=== PATIENT | female | born 2000 | race Caucasian/White ===

== ENCOUNTER → 2021-12-09 11:22 | Outpatient (BNVA) | payer MEDICAID, SELFPAY | PROVIDERS: Family Provider Family Medicine; Visit Provider Registered Nurse | DX: K52.9 Noninfective gastroenteritis and colitis, unspecified (principal); E04.1 Nontoxic single thyroid nodule | CPT/HCPCS: 80053; 84443; 85025; 85651; 86140 ==

== ENCOUNTER 2022-01-04 08:59 | Outpatient (CLI) | payer MEDICAID, SELFPAY ==
--- NOTE | 2022-01-04 09:30 | US_ITS ---
WS: [id number] ULTRASOUND THYROID TECHNIQUE: Ultrasound of the thyroid. CLINICAL INFORMATION: E04.1 - Nontoxic single thyroid nodule COMPARISON: None. FINDINGS: Thyroid: Right and left thyroid lobes are normal in size and echotexture. No thyroid nodules are pres ent. Right thyroid lobe: 4.4 cm x 1.1 cm x 1.5 cm Left thyroid lobe: 4.4 cm x 1.5 cm x 1.1 cm. Isthmus: 0.3 mm. Cervical lymphadenopathy: None. US/US thyroid 76288 IMPRESSION: Normal thyroid ultrasound examination.
== END 2022-01-04 09:00 | disposition home or self-care (01) ==
LOC: RAD 09:00
PROVIDERS: PCP Registered Nurse; Visit Provider Registered Nurse
DX: E04.1 Nontoxic single thyroid nodule (principal)
CPT/HCPCS: 76536

== ENCOUNTER → 2022-02-03 08:57 | Outpatient (BNVA) | payer MEDICAID, SELFPAY | PROVIDERS: PCP Registered Nurse; Visit Provider Registered Nurse | DX: N89.8 Other specified noninflammatory disorders of vagina (principal) | CPT/HCPCS: 81000; 87086; 87491; 87591; 87661 ==

== ENCOUNTER 2022-04-19 09:01 | Emergency (ER) | payer MEDICAID, SELFPAY ==
[2022-04-19] VITALS (11 sets, daily range): BP systolic 120–137; BP diastolic 66–99; PULSE 78–80; RESP 14–18; TEMP 36.5; O2SAT 98–100; BMI 20.1
--- NOTE | 2022-04-19 09:28 | W.ED.ABDPA2 ---
HPI - Abdominal Pain General: Chief Complaint: Abdominal Pain Stated Complaint: Abd pain, Fever, V/N Time Seen by Provider: 04/19/22 09:19 History of Present Illness: 21-year-old female who is 2 and half months who presents with epigastric abdominal pain. The patient's been having pain off and on for the past 2-1/2 weeks. She describes it as a full sensation. She has had associated nausea and vomiting. She describes her emesis as bubbly and clear. She denies coffee-ground emesis or bright red bloody emesis. The pain does not radiate. She is not been able to keep any oral food or fluids down for the past 3 days. She denies diarrhea. She has had decreased urinary output. She denies dysuria or hematuria. She denies vaginal bleeding. No prior history of hyperemesis with her previous pregnancies. Associated Symptoms: Reports chills, fever(s), nausea and vomiting; Denies coffee ground emesis, GI cramping, diarrhea, dysuria, hematochezia, hematemesis and melena Review of Systems Const: Reports: fever(s), chills, body aches and fatigue Eyes: Denies: change in vision ENMT: Denies: throat pain Card: Denies: chest pain Resp: Denies: dyspnea or non-productive cough GI: Reports: abdominal pain, nausea and vomiting; Denies: hematemesis, coffee ground emesis, diarrhea, GI cramping, hematochezia or melena : Reports: difficulty voiding; Denies: flank pain, dysuria, urinary frequency or urinary hesitancy Musc: Denies: back pain Skin/Breast: Denies: rash Neuro: Denies: headache(s) PFSH ED PFSH: Social History Smoking and tobacco status: current every day smoker cigarettes Smoking risk assessment/counseling performed?: Yes Alcohol intake: current Alcohol intake frequency: few times a month Physical Exam Const: COMMON NORMALS: no acute distress, patient oriented x3, alert and well nourished Eye: COMMON NORMALS: Equal, round and reactive pupils present and EOMs intact bilaterally PUPIL: Yes Equal, round and reactive pupils present Neck/C-Spine: COMMON NORMALS: supple Resp: COMMON NORMALS: normal respiratory effort, No use of accessory muscles and clear to auscultation bilaterally AUSCULTATION: clear to auscultation bilaterally Cardio: COMMON NORMALS: regular rate and regular rhythm RATE: regular rate RHYTHM: regular rhythm GI: COMMON NORMALS: Normal to inspection, nondistended, normoactive bowel sounds present and Soft to palpation PALPATION: Yes Soft to palpation OTHER: Patient has tenderness in the epigastric area. Her abdomen is soft, no rebound or guarding. She has no tenderness in the right upper quadrant. She has a negative Stark sign. Extremity: OTHER: No edema. Neuro: COMMON NORMALS: patient oriented x3 SENSORIUM/ORIENTATION: Yes alert Course ED course: Patient has been given 1 L of saline IV as well as 4 mg of Zofran for nausea and 5 mg of Compazine IV. Nausea is improved and she is not tolerating oral fluids. She was given a GI cocktail which helped her epigastric pain. I do feel that this is likely gastroenteritis with an associated gastritis. On her laboratory evaluation, she does have a urinary tract infection. White blood cell count is 12.1. Hemoglobin 17.2, hematocrit 49.5. Sodium is 135, potassium 3.9, chloride 98, CO2 is 22. Glucose is 99. LFTs are normal. Lipase is normal. On urinalysis she has 5-10 white blood cells, 3+ bacteria and positive leukocyte esterase. Urine culture has been sent. The patient's been given Rocephin 2 g IV in the ER. We will plan for discharge home on Phenergan to take every 6 hours as needed for nausea and vomiting. And when to give her Carafate to take up to 4 times daily as needed for her epigastric abdominal pain. We will place her on ampicillin 500 mg 3 times daily x7 days for her urinary tract infection. She has been instructed to push fluids. Avoid spicy foods, greasy foods, aspirin, ibuprofen, caffeine and tobacco. Return for symptoms are worsening. 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 Reevaluation(s): Reevaluation #1: Patient is feeling significantly better. Abdominal pain is resolved. Tolerating p.o. fluids. Time: 11:37 Vital Signs: Vital signs: Vital Signs Temperature 97.7 F 04/19/22 09:10 Pulse Rate 78 04/19/22 10:04 Respiratory Rate 16 04/19/22 10:04 Blood Pressure 137/99 04/19/22 10:04 Pulse Oximetry 99 04/19/22 10:04 Oxygen Delivery Me thod 04/19/22 10:04 MDM - Abdominal Pain Medical Decision Making 21-year-old female who presents with epigastric abdominal pain with associated nausea and vomiting. Suspect this is a gastritis. Other differentials include pancreatitis, peptic ulcer disease, hyperemesis. We will start an IV, give her IV fluids and Zofran for nausea. I am going to try GI cocktail initially. Differential Diagnosis Likely abdominal pain, gastroenteritis and pancreatitis Lab Data I reviewed the patient's lab results. 04/19/22 09:43 04/19/22 09:43 Labs/Radiology: Laboratory Results WBC 12.1 10^3/uL (4.0-10.0) H 04/19/22 09:43 RBC 5.64 10^6/uL (4.1-5.3) H 04/19/22 09:43 Hgb 17.2 g/dL (11.5-15.3) H 04/19/22 09:43 Hct 49.5 % (37.0-47.0) H 04/19/22 09:43 MCV 87.8 fl (81-99) 04/19/22 09:43 MCH 30.5 pg (28.0-34.0) 04/19/22 09:43 MCHC 34.7 g/dL (30.0-36.0) 04/19/22 09:43 RDW 12.8 % (12.1-15.1) 04/19/22 09:43 Plt Count 214 10^3/cmm (130-400) 04/19/22 09:43 MPV 12.0 fL (7.4-10.4) H 04/19/22 09:43 Neut % (Auto) 90.4 % 04/19/22 09:43 Lymph % (Auto) 7.4 % 04/19/22 09:43 [place] % (Auto) 1.7 % 04/19/22 09:43 Eos % (Auto) 0.0 % 04/19/22 09:43 Baso % (Auto) 0.2 % 04/19/22 09:43 Neut # (Auto) 10.89 10^3/uL (1.8-7.7) H 04/19/22 09:43 Lymph # (Auto) 0.9 10^3/uL (0.8-4.8) 04/19/22 09:43 [place] # (Auto) 0.2 10^3/uL (0.2-0.9) 04/19/22 09:43 Eos # (Auto) 0.0 10^3/uL (0.0-0.8) 04/19/22 09:43 Baso # (Auto) 0.0 10^3/uL (0.0-0.1) 04/19/22 09:43 Nucleated RBC % (auto) 0 % 04/19/22 09:43 Nucleated RBCs # 0.0 /100WBC 04/19/22 09:43 Sodium 135 mmol/L (136-145) L 04/19/22 09:43 Potassium 3.9 mmol/L (3.5-5.1) 04/19/22 09:43 Chloride 98 mmol/L (98-107) 04/19/22 09:43 Carbon Dioxide 22 mmol/L (22-29) 04/19/22 09:43 Anion Gap 18.9 (5-19) 04/19/22 09:43 BUN 12 mg/dL (6-20) 04/19/22 09:43 Creatinine 0.6 mg/dL (0.5-0.9) 04/19/22 09:43 GFR Calculation 123.9 mL/min (90-130) 04/19/22 09:43 Glucose 99 mg/dL (65-115) 04/19/22 09:43 Calculated Osmolality 280 mOsm/kg (285-295) L 04/19/22 09:43 Calcium 9.8 mg/dL (8.5-10.5) 04/19/22 09:43 Total Bilirubin 1.0 mg/dL (0.15-1.2) 04/19/22 09:43 AST 18 U/L (0-32) 04/19/22 09:43 ALT 24 U/L (0-33) 04/19/22 09:43 Alkaline Phosphatase 59 U/L (35-105) 04/19/22 09:43 Total Protein 8.3 g/dL (6.6-8.7) 04/19/22 09:43 Albumin 5.2 g/dL (3.5-5.2) 04/19/22 09:43 Globulin 3.1 g/dL (1.3-4.6) 04/19/22 09:43 Lipase 20 U/L (13-60) 04/19/22 09:43 Urine Color Dark yellow (Yellow) 04/19/22 10:31 Urine Appearance Clear (CLEAR) 04/19/22 10:31 Urine pH 6.5 (5-7) 04/19/22 10:31 Ur Specific [place] 1.025 (1.005-1.030) 04/19/22 10:31 Urine Protein Trace (Negative) 04/19/22 10:31 Urine Glucose (UA) Norm (Normal) 04/19/22 10:31 Urine Ketones 1+ (Negative) H 04/19/22 10:31 Urine Blood 2+ (Negative) H 04/19/22 10:31 Urine Nitrate Negative (Negative) 04/19/22 10:31 Urine Bilirubin Neg (Negative) 04/19/22 10:31 Urine Urobilinogen Norm mg/dL (Negative) 04/19/22 10:31 Ur Leukocyte Esterase 1+ (Negative) H 04/19/22 10:31 Urine RBC 0-4 /hpf (0-2) H 04/19/22 10:31 Urine WBC 5-10 /hpf (0-5) H 04/19/22 10:31 Ur Squamous Epith Cells 0-4 /hpf (0-5) H 04/19/22 10:31 Amorphous Sediment Not Reportable 04/19/22 10:31 Urine Bacteria 3+ /hpf (NONE) H 04/19/22 10:31 Discharge Plan Discharge Patient Disposition: Home Clinical Impression: Gastritis, Nausea & vomiting, Urinary tract infection affecting Condition: Stable Prescriptions: New promethazine 25 mg tablet 25 mg PO QID PRN (Reason: nausea and vomiting) Qty: 20 0RF Carafate 1 gram tablet 1 g PO TID Qty: 90 0RF ampicillin 500 mg capsule 500 mg PO TID Qty: 21 0RF No Action doxylamine-pyridoxine (vit B6) 10-10 mg Tablet,Delayed Release (Dr/Ec) 1 tab PO BID Discharge Orders: Discharge ED (Routine); Ordered 04/19/22 Ordered By: Pilar Sarah Referrals: Reinier Amezquita, MANAGER CONFIGURATION [Primary Care Provider] - Discharge Diet: Advance as tolerated Discharge Activity: Increase activity as tolerated Patient Instructions: Opioid Safety, Pain Management, Gastritis (ED), Urinary Tract Infection in (ED), Acute Nausea and Vomiting (DC) Activity Restrictions/Additional Instructions: Start with clear liquids. Avoid greasy foods, spicy foods, caffeine, alcohol, nicotine, aspirin, ibuprofen or anything that is irritating to your stomach lining. Eat small frequent meals. Take the Phenergan every 4-6 hours as needed for nausea and vomiting. He can take Carafate up to 4 times daily as needed for the epigastric abdominal pain. Make sure you finish your antibiotics -the ampicillin which you take 3 times daily for 7 days. You can advance your diet as tolerated. Start with bland foods. Return if you are having persistent vomiting or increasing pain. Follow-up in 1 to 2 weeks with your OB doctor. Coding Level of Care Code ED Undercover Cop for Pramodg Fwd Exam Detailed
[2022-04-19 09:50] LABS: Basophils % 0.2 %; Hematocrit 49.5 % (37.0-47.0); Hemoglobin 17.2 g/dL (11.5-15.3); Lymphocytes # 0.9 10^3/uL (0.8-4.8); Lymphocytes % 7.4 %; Mean Corpuscular HGB Conc 34.7 g/dL (30.0-36.0); Mean Corpuscular Hemoglobin 30.5 pg (28.0-34.0); Mean Corpuscular Volume 87.8 fl (81-99); Monocytes # 0.2 10^3/uL (0.2-0.9); Monocytes % 1.7 %; Neutrophils # 10.89 10^3/uL (1.8-7.7); Neutrophils % 90.4 %; Nucleated Red Blood Cells % 0 %; Platelet Count 214 10^3/cmm (130-400); Red Blood Count 5.64 10^6/uL (4.1-5.3); Red Cell Distribution Width 12.8 % (12.1-15.1); White Blood Count 12.1 10^3/uL (4.0-10.0)
[2022-04-19] MEDS: sodium chloride 0.9% 1,000 ML 999 ML IV (09:50)
[2022-04-19] MEDS: ondansetron 2 mg/ML SDV 2 mL 4 MG IVP (09:51)
[2022-04-19] MEDS: lidocaine 2% viscous 15 ML, aluminum-mag hydrox-simethicon 30 ML, sucralfate oral liq 1 GM PO (09:51)
[2022-04-19 10:22] LABS: Alanine Aminotransferase 24 U/L (0-33); Albumin Level 5.2 g/dL (3.5-5.2); Alkaline Phosphatase 59 U/L (35-105); Anion Gap 18.9 (5-19); Aspartate Amino Transferase 18 U/L (0-32); Blood Urea Nitrogen 12 mg/dL (6-20); Calcium 9.8 mg/dL (8.5-10.5); Carbon Dioxide 22 mmol/L (22-29); Chloride 98 mmol/L (98-107); Creatinine Clr Calc Pharmacy 134.1185; Globulin 3.1 g/dL (1.3-4.6); Glomerular Filtration Rate 123.9 mL/min (90-130); Glucose 99 mg/dL (65-115); Lipase 20 U/L (13-60); Osmolality Calculated 280 mOsm/kg (285-295); Potassium 3.9 mmol/L (3.5-5.1); Sodium 135 mmol/L (136-145); Total Protein 8.3 g/dL (6.6-8.7)
[2022-04-19] MEDS: prochlorperazine 10 mg/2 mL Inj 5 MG IVP (10:26)
[2022-04-19 10:42] LABS: Urine Appearance Clear (CLEAR)
[2022-04-19 10:43] LABS: Add Urine Microscopic? YES; Bilirubin Urine Neg (Negative); Blood Urine 2+ (Negative); Glucose Urine UA Norm (Normal); Ketones Urine 1+ (Negative); Leukocyte Esterase Urine 1+ (Negative); Nitrate Urine Negative (Negative); Protein Urine Trace (Negative); Specific Gravity, Urine 1.025 (1.005-1.030); Urine Color Dark Yellow (Yellow); Urobilinogen Urine Norm (Negative); pH Urine 6.5 (5-7)
[2022-04-19 10:46] LABS: Add Urine Culture? Yes; Bacteria Urine 3+ /hpf; RBC Urine 0-4 /hpf (0-2); Squamous Epithelial Cell Urine 0-4 /hpf (0-5)
[2022-04-19] MEDS: cefTRIAXone 2,000 MG in sodium chloride 0.9% (plus) 50 ML 100 MG IV (11:35)
== END 2022-04-19 12:13 | disposition home or self-care (01) ==
PROVIDERS: Emergency Provider Emergency Medicine; PCP Registered Nurse
DX: O23.41 Unspecified infection of urinary tract in pregnancy, first trimester (principal); N39.0 Urinary tract infection, site not specified; O26.891 Other specified pregnancy related conditions, first trimester; K29.70 Gastritis, unspecified, without bleeding; O99.331 Smoking (tobacco) complicating pregnancy, first trimester; F17.210 Nicotine dependence, cigarettes, uncomplicated; Z3A.10 10 weeks gestation of pregnancy
CPT/HCPCS: 80053; 81001; 83690; 85025; 87086; 96365; 96375; 99284; J0696; J0780; J2405; J7030

== ENCOUNTER 2022-04-22 09:51 | Emergency (ER) | payer MEDICAID, SELFPAY ==
[2022-04-22 09:57] VITALS: BP 149/80; PULSE 70; RESP 18; TEMP 36.9; O2SAT 100
--- NOTE | 2022-04-22 11:50 | ED_ITS ---
HPI - Nausea/Vomiting/Diarrhea General: Chief complaint: Nausea/Vomiting/Diarrhea Stated complaint: n/v Time Seen by Provider: 04/22/22 11:50 History of Present Illness: Ms. Frank is a 21-year-old lady she to currently approximately 2 and half months presenting to the emergency department due to epigastric discomfort associated with emesis. Notes symptoms started approximately 3 weeks ago. She describes a fullness and associated nausea and vomiting. Emesis is clear and foamy. She denies noting food or medications and emesis even when she has recently consumed them. Overall symptoms have persisted and are moderate in intensity. Previously seen and evaluated and treated for UTI and with promethazine without significant improvement. No other specific changes in health, exacerbating, or alleviating factors identified. Onset (ago): week(s) Description of vomiting: watery Associated nausea: Yes Associated abdominal pain: Yes Location of pain: Epigastric Severity: moderate Exacerbating factors: eating and vomiting Relieving factors: none Context: other Associated symtoms: Reports nausea Review of Systems General: Reports: 10 or more systems reviewed and unremarkable except in HPI and below GI: Reports: nausea PFSH ED PFSH: Medical History No significant past medical history Surgical History No significant past surgical history Social History Smoking and tobacco status: current every day smoker cigarettes Smoking risk assessment/counseling performed?: Yes Alcohol intake: current Alcohol intake frequency: few times a month Female Reproductive History: Date of last menstrual period: 02/09/22 Physical Exam Const: COMMON NORMALS: alert GENERAL APPEARANCE: cooperative and well developed HENMT: COMMON NORMALS: normocephalic and atraumatic HEAD & SCALP: normocephalic and atraumatic Eye: COMMON NORMALS: conjunctivae normal CONJUNCTIVA: Yes conjunctivae normal SCLERA: sclerae normal Neck/C-Spine: COMMON NORMALS: supple GENERAL: Yes trachea midline Resp: COMMON NORMALS: clear to auscultation bilaterally EFFORT & INSPECTION: Yes able to speak in complete sentences AUSCULTATION: clear to auscultation bilaterally Cardio: COMMON NORMALS: regular rate and regular rhythm RATE: regular rate RHYTHM: regular rhythm GI: COMMON NORMALS: Soft to palpation PALPATION: Yes Soft to palpation and No Tenderness to palpation present (GI) Extremity: GENERAL: Yes normal exam except as noted and No edema Neuro: COMMON NORMALS: moves all extremities SENSORIUM/ORIENTATION: Yes alert and No Orientation impaired Psych: COMMON NORMALS: mental status grossly normal and Normal thought process present THOUGHT PROCESS: Normal thought process present Course Vital Signs: Vital signs: Vital Signs Temperature 98.5 F 04/22/22 09:57 Pulse Rate 67 04/22/22 13:18 Respiratory Rate 16 04/22/22 13:18 Blood Pressure 129/85 04/22/22 13:18 Pulse Oximetry 99 04/22/22 13:18 Oxygen Delivery Me thod 04/22/22 13:18 MDM - Nausea/Vomiting/Diarrhea Medical Decision Making 21-year-old lady currently presenting to the emergency department due to persistent nausea and vomiting. Patient is nontoxic in appearance and there is no evidence of peritonitis or acute surgical abdomen on exam. Laboratory studies notable for leukocytosis which may be reactive, overall hemoconcentration is mildly improved. No significant electrolyte derangements and renal function is preserved. Urinalysis appears to be improving compared to prior likely indicating that antibiotics are being effective. The patient had significant improvement with IV fluid bolus, acetaminophen, Reglan, Maalox. She was able to tolerate p.o. intake. Most likely etiology of patient's symptoms is related nausea and vomiting with dehydration. I will prescribe different regimen for induced nausea and vomiting. Patient also understands need for follow-up with pill maker. The results of ED evaluation were discussed with the patient including prescriptions and/or symptomatic cares (if applicable) including appropriate and responsible use, followup plan, and return precautions. The patient verbalized understanding and felt safe for discharge. Medical Records I reviewed the patient's medical records. Lab Data I reviewed the patient's lab results. 04/22/22 12:22 04/22/22 12: Laboratory Results WBC 14.4 10^3/uL (4.0-10.0) H 04/22/22 12:22 RBC 5.20 10^6/uL (4.1-5.3) 04/22/22 12:22 Hgb 16.0 g/dL (11.5-15.3) H 04/22/22 12:22 Hct 46.9 % (37.0-47.0) 04/22/22 12:22 MCV 90.2 fl (81-99) 04/22/22 12:22 MCH 30.8 pg (28.0-34.0) 04/22/22 12:22 MCHC 34.1 g/dL (30.0-36.0) 04/22/22 12:22 RDW 12.5 % (12.1-15.1) 04/22/22 12:22 Plt Count 211 10^3/cmm (130-400) 04/22/22 12:22 MPV 12.2 fL (7.4-10.4) H 04/22/22 12:22 Neut % (Auto) 85.6 % 04/22/22 12:22 Lymph % (Auto) 10.5 % 04/22/22 12:22 [place] % (Auto) 3.2 % 04/22/22 12:22 Eos % (Auto) 0.1 % 04/22/22 12:22 Baso % (Auto) 0.3 % 04/22/22 12:22 Neut # (Auto) 12.34 10^3/uL (1.8-7.7) H 04/22/22 12:22 Lymph # (Auto) 1.5 10^3/uL (0.8-4.8) 04/22/22 12:22 [place] # (Auto) 0.5 10^3/uL (0.2-0.9) 04/22/22 12:22 Eos # (Auto) 0.0 10^3/uL (0.0-0.8) 04/22/22 12:22 Baso # (Auto) 0.1 10^3/uL (0.0-0.1) 04/22/22 12:22 Nucleated RBC % (auto) 0 % 04/22/22 12:22 Nucleated RBCs # 0.0 /100WBC 04/22/22 12:22 Sodium 136 mmol/L (136-145) 04/22/22 12:22 Potassium 3.7 mmol/L (3.5-5.1) 04/22/22 12:22 Chloride 101 mmol/L (98-107) 04/22/22 12:22 Carbon Dioxide 24 mmol/L (22-29) 04/22/22 12:22 Anion Gap 14.7 (5-19) 04/22/22 12:22 BUN 7 mg/dL (6-20) 04/22/22 12:22 Creatinine 0.5 mg/dL (0.5-0.9) 04/22/22 12: GFR Calculation 152.9 mL/min (90-130) H 04/22/22 12: Glucose 92 mg/dL (65-115) 04/22/22 12: Calculated Osmolality 280 mOsm/kg (285-295) L 04/22/22 12:22 Calcium 9.1 mg/dL (8.5-10.5) 04/22/22 12:22 Total Bilirubin 0.8 mg/dL (0.15-1.2) 04/22/22 12: AST 13 U/L (0-32) 04/22/22 12: ALT 19 U/L (0-33) 04/22/22 12: Alkaline Phosphatase 52 U/L (35-105) 04/22/22 12:22 Total Protein 7.7 g/dL (6.6-8.7) 04/22/22 12:22 Albumin 4.8 g/dL (3.5-5.2) 04/22/22 12: Globulin 2.9 g/dL (1.3-4.6) 04/22/22 12: Lipase 21 U/L (13-60) 04/22/22 12:22 Urine Color Yellow (Yellow) 04/22/22 12:22 Urine Appearance Cloudy (CLEAR) A 04/22/22 12: Urine pH 8 (5-7) H 04/22/22 12:22 Ur Specific [place] 1.015 (1.005-1.030) 04/22/22 12:22 Urine Protein Neg (Negative) 04/22/22 12: Urine Glucose (UA) Norm (Normal) 04/22/22 12: Urine Ketones 3+ (Negative) H 04/22/22 12: Urine Blood Neg (Negative) 04/22/22 12:22 Urine Nitrate Negative (Negative) 04/22/22 12: Urine Bilirubin Neg (Negative) 04/22/22 12:22 Prot Sulfosalicylic Acd Negative (Negative) 04/22/22 12:22 Urine Urobilinogen Norm mg/dL (Negative) 04/22/22 12:22 Ur Leukocyte Esterase Negative (Negative) 04/22/22 12:22 Urine RBC 0-4 /hpf (0-2) H 04/22/22 12:22 Urine WBC 0-4 /hpf (0-5) H 04/22/22 12:22 Ur Squamous Epith Cells 0-4 /hpf (0-5) H 04/22/22 12:22 Amorphous Sediment 4+ /hpf 04/22/22 12:22 Urine Bacteria Trace /hpf (NONE) 04/22/22 12:22 Discharge Plan Discharge Patient Disposition: Home Clinical Impression: Nausea and vomiting during , Dehydration Condition: Stable Prescriptions: New Reglan 10 mg tablet 10 mg PO Q6H PRN (Reason: nausea and vomiting) Qty: 30 0RF Changed doxylamine-pyridoxine (vit B6) 10-10 mg Tablet,Delayed Release (Dr/Ec) 1 tab PO BID PRN (Reason: Nausea And Vomiting) Qty: 30 0RF Discontinued promethazine 25 mg tablet 25 mg PO QID PRN (Reason: nausea and vomiting) Qty: 20 0RF No Action Carafate 1 gram tablet 1 g PO TID Qty: 90 0RF ampicillin 500 mg capsule 500 mg PO TID Qty: 21 0RF Discharge Orders: Discharge ED (Routine); Ordered 04/22/22 Ordered By: Richie Mathews Referrals: Reinier Amezquita, CIVIL ENGINEERING PROJECT MANAGER [Primary Care Provider] - Discharge Diet: Advance as tolerated and Clear Liquid Discharge Activity: Increase activity as tolerated Patient Instructions: Nausea and Vomiting in (ED), Dehydration (ED) Activity Restrictions/Additional Instructions: Thank you for visiting the emergency department. You were seen and evaluated for nausea and vomiting during . The exact cause of your symptoms is unclear though does not appear to need hospitalization at this time. You were found to be dehydrated. I will prescribe doxylamine and vitamin B6 as first-line antinausea medication during , I will also prescribe Reglan which you can take instead of the promethazine. Please follow-up with your PSYCHOLOGY LECTURER. Return to the emergency department for worsening symptoms or anything else that you are concerned about a feel needs emergency department evaluation. Coding Level of Care Code ED Oil Rag Washer for Chg Fwd Exam Comprehensive
[2022-04-22] MEDS: sodium chloride 0.9% 1,000 ML 999 ML IV ×2 (12:30→13:55)
[2022-04-22 12:31] LABS: Basophils # 0.1 10^3/uL (0.0-0.1); Basophils % 0.3 %; Eosinophils % 0.1 %; Hematocrit 46.9 % (37.0-47.0); Lymphocytes # 1.5 10^3/uL (0.8-4.8); Lymphocytes % 10.5 %; Mean Corpuscular HGB Conc 34.1 g/dL (30.0-36.0); Mean Corpuscular Hemoglobin 30.8 pg (28.0-34.0); Mean Corpuscular Volume 90.2 fl (81-99); Mean Platelet Volume 12.2 fL (7.4-10.4); Monocytes # 0.5 10^3/uL (0.2-0.9); Monocytes % 3.2 %; Neutrophils # 12.34 10^3/uL (1.8-7.7); Neutrophils % 85.6 %; Nucleated Red Blood Cells % 0 %; Platelet Count 211 10^3/cmm (130-400); Red Cell Distribution Width 12.5 % (12.1-15.1); White Blood Count 14.4 10^3/uL (4.0-10.0)
[2022-04-22] MEDS: metoclopramide 5 mg/mL SDV 2 mL 10 MG IVP (12:31)
[2022-04-22 12:36] LABS: Bilirubin Urine Neg (Negative); Blood Urine Neg (Negative); Glucose Urine UA Norm (Normal); Ketones Urine 3+ (Negative); Nitrate Urine Negative (Negative); Protein Urine Neg (Negative); Specific Gravity, Urine 1.015 (1.005-1.030); Urine Appearance Cloudy (CLEAR); Urine Color Yellow (Yellow); pH Urine 8 (5-7)
[2022-04-22 12:37] LABS: Add Urine Culture? No; Add Urine Microscopic? YES; Amorphous Sediment Urine 4+ /hpf; Bacteria Urine TRACE /hpf; Leukocyte Esterase Urine Negative (Negative); RBC Urine 0-4 /hpf (0-2); Squamous Epithelial Cell Urine 0-4 /hpf (0-5); Sulfosalicylic Acid Urine Negative (Negative); Urobilinogen Urine Norm (Negative); WBC Urine 0-4 /hpf (0-5)
[2022-04-22 12:48] LABS: Alanine Aminotransferase 19 U/L (0-33); Albumin Level 4.8 g/dL (3.5-5.2); Alkaline Phosphatase 52 U/L (35-105); Anion Gap 14.7 (5-19); Aspartate Amino Transferase 13 U/L (0-32); Blood Urea Nitrogen 7 mg/dL (6-20); Calcium 9.1 mg/dL (8.5-10.5); Carbon Dioxide 24 mmol/L (22-29); Chloride 101 mmol/L (98-107); Globulin 2.9 g/dL (1.3-4.6); Glomerular Filtration Rate 152.9 mL/min (90-130); Glucose 92 mg/dL (65-115); Lipase 21 U/L (13-60); Osmolality Calculated 280 mOsm/kg (285-295); Potassium 3.7 mmol/L (3.5-5.1); Sodium 136 mmol/L (136-145); Total Bilirubin 0.8 mg/dL (0.15-1.2); Total Protein 7.7 g/dL (6.6-8.7)
[2022-04-22 13:18] VITALS: BP 129/85; PULSE 67; RESP 16; O2SAT 99
[2022-04-22] MEDS: alum-mag-hydroxide-sime 30 mL UDC PO (14:05)
[2022-04-22] MEDS: acetaminophen 325 mg Tablet 650 MG PO (14:05)
== END 2022-04-22 15:54 | disposition home or self-care (01) ==
PROVIDERS: Emergency Provider Emergency Medicine; PCP Registered Nurse
DX: O21.9 Vomiting of pregnancy, unspecified (principal); Z3A.00 Weeks of gestation of pregnancy not specified; O26.899 Other specified pregnancy related conditions, unspecified trimester; E86.0 Dehydration
CPT/HCPCS: 80053; 81001; 83690; 85025; 96361; 96374; 99284; J2765; J7030

== ENCOUNTER 2022-07-10 07:50 | Outpatient (CLI) | payer MEDICAID, SELFPAY ==
--- NOTE | 2022-07-10 | US_ITS ---
WS: [id number] ULTRASOUND OB COMPLETE TECHNIQUE: Complete ultrasound. CLINICAL INFORMATION: NORMAL 2ND TRIMESTER COMPARISON: None FINDINGS: Closed cervix measures 3.7 cm Single interuterine gestation is identified with cephalic presentation. Low-lying posterior placenta. Recommend 3rd trimester follow-up. Normal amniotic fluid volume. KATHRINE 10.9 cm cardiac activity: 160 BPM. AGA: 20w1d YARA by ultrasound: 11/26/2022 Based on GA: No Available percentile Estimated weight: 330 g; 0 lbs. 12 oz. BDP: 4.6 cm = 19w6d HC: 17.8 cm = 20w2d AC: 14.6 cm = 19w6d FEMUR LENGTH: 3.3 cm = 20w1d Anatomic survey: Anatomic survey is normal. Normal stomach. Kidneys and bladder are normal. Normal 3 vessel cord. Norm al 3 vessel cord insertion. Normal 4 chamber heart. Normal spine. Intracranial contents are normal. N ormal posterior fossa and cisterna magna. US/US OB >= 14 weeks fetus [id number] IMPRESSION: 1. Single intrauterine with visualized cardiac activity. AGA 20w1d w ith YARA 11/26/2022. 2. Low-lying posterior placenta. Recommend 3rd trimester follow-up. 3. anatomic survey is normal. 4. Normal amniotic fluid volume.
== END 2022-07-10 07:51 | disposition home or self-care (01) ==
LOC: RAD 07:53
PROVIDERS: PCP Registered Nurse; Visit Provider Family Medicine
DX: Z34.82 Encounter for supervision of other normal pregnancy, second trimester (principal); Z3A.20 20 weeks gestation of pregnancy
CPT/HCPCS: 76805

== ENCOUNTER 2022-12-01 07:52 | Inpatient (IN) | payer MEDICAID, SELFPAY ==
[2022-12-01] VITALS (76 sets, daily range): BP systolic 90–144; BP diastolic 53–85; PULSE 79–110; RESP 16; TEMP 36.3–36.7; O2SAT 97–99; BMI 28.8
[2022-12-01 09:07] LABS: Basophils # 0.1 10^3/uL (0.0-0.1); Basophils % 0.4 %; Eosinophils # 0.3 10^3/uL (0.0-0.8); Eosinophils % 1.7 %; Hematocrit 33.3 % (37.0-47.0); Hemoglobin 10.8 g/dL (11.5-15.3); Lymphocytes # 2.6 10^3/uL (0.8-4.8); Lymphocytes % 15.3 %; Mean Corpuscular HGB Conc 32.4 g/dL (30.0-36.0); Mean Corpuscular Hemoglobin 30.6 pg (28.0-34.0); Mean Corpuscular Volume 94.3 fl (81-99); Mean Platelet Volume 13.3 fL (7.4-10.4); Monocytes # 1.2 10^3/uL (0.2-0.9); Monocytes % 7.3 %; Neutrophils % 74.1 %; Nucleated Red Blood Cells % 0 %; Platelet Count 133 10^3/cmm (130-400); Red Blood Count 3.53 10^6/uL (4.1-5.3); Red Cell Distribution Width 13.7 % (12.1-15.1); White Blood Count 16.8 10^3/uL (4.0-10.0)
[2022-12-01] MEDS: dextrose 5%-lactated ringers 1,000 ML 125 ML IV (09:11)
[2022-12-01] MEDS: ampicillin 2,000 MG in sodium chloride 0.9% (plus) 50 ML 100 MG IV (09:12)
[2022-12-01 09:15] LABS: Amphetamines Screen Urine Negative (Negative); Barbiturates Screen Urine Negative (Negative); Benzodiazepines Screen Urine Negative (Negative); Cocaine Screen Urine Negative (Negative); Opiate Screen Urine Negative (Negative); PCP Screen Urine Negative (Negative); THC Screen Urine Positive (Negative)
[2022-12-01] MEDS: lactated ringers 1,000 ML 999 ML IV ×2 (11:38→13:30)
[2022-12-01] MEDS: ampicillin 1,000 MG in sodium chloride 0.9% (plus) 50 ML 100 MG IV ×2 (12:52→16:30)
--- NOTE | 2022-12-01 13:51 | ANES.PREANE2 ---
Pre-Anesthetic Assessment Height/Weight: Height 1.7 m Weight 83.461 kg Temp Pulse BP Pulse Ox O2 Del Method 97.5 F L 103 H 108/71 99 Room Air 12/01/22 10:09 12/01/22 13:46 12/01/22 13:46 12/01/22 13:46 12/01/22 09:00 Preop Diagnosis: Labor pain SADIA Was Beta Jomar taken within 24 hours: N/A Was Clonidine taken within 24 hours: N/A Social Tobacco and No alcohol 1 pack(s) per day Exam alert, oriented x 3, clear to auscultation bilaterally and regular rate & rhythm Airway Submandibular: within normal limits Cervical ROM: within normal limits Mallampati: Class II Dentition: full History/ROS No significant history except as noted and No significant complaints CV/HEM None reported None reported Hepatic None reported GI None reported Metabolic None reported Musc/skel None reported Neuropsych None reported Anesthetic Plan ASA status: 2 Anesthesia: Anesthesia Evaluation and Regional (specify below) Other: SADIA Risk of > 500 ml blood loss (7ml/kg in children): No Medications/Allergies Home Medications Medication Instructions Recorded Confirmed Last Taken Type ampicillin 500 mg capsule 500 mg PO TID #21 caps 04/19/22 Unknown Rx sucralfate 1 gram tablet (Carafate) 1 g PO TID #90 tabs 04/19/22 Unknown Rx doxylamine 10 mg-pyridoxine (vit 1 tab PO BID PRN Nausea And 04/22/22 Unknown Rx B6) 10 mg tablet,delayed release Vomiting #30 tabs metoclopramide HCl 10 mg tablet 10 mg PO Q6H PRN nausea and 04/22/22 Unknown Rx (Reglan) vomiting #30 tabs Allergies Allergy/AdvReac Type Severity Reaction Status Date / Time latex Allergy ALGY-Rash Verified 04/19/22 09:50 Current Medications Generic Name Dose Route Start Last Admin Trade Name Freq PRN Reason Stop Dose Admin Dextrose/Lactated Ringer's 1,000 mls @ 125 mls/hr 12/01/22 08:30 12/01/22 11:39 Dextrose 5%-Lactated Ringers IV 0 mls/hr .Q8H MERRY Infusion Ampicillin Sodium 1,000 mg/ 50 mls @ 100 mls/hr 12/01/22 12:30 12/01/22 12:52 Sodium Chloride IV 100 mls/hr Q4H MERRY Administration Protocol Oxytocin 30 unit in 500 mls @ 1 mls/hr 12/01/22 08:30 12/01/22 10:14 Pitocin IV Not Given .Q24H MERRY Protocol 1 MILLIUNIT/MIN Oxytocin 30 unit/ Sodium 503 mls @ 1 mls/hr 12/01/22 10:00 12/01/22 11:30 Chloride IV 11 ml/hr .Q24H MERRY 11 mls/hr Titration Protocol Lactated Ringer's 1,000 mls @ 999 mls/hr 12/01/22 11:30 12/01/22 11:38 Lactated Ringers IV 999 mls/hr .Q1H1M PRN Administration See label comments PFSH Anesthesia Medical History No significant past medical history Surgical History No significant past surgical history Social History Smoking and tobacco status: current every day smoker cigarettes Smoking risk assessment/counseling performed?: Yes Alcohol intake: current Alcohol intake frequency: few times a month Substance/Drug Use: current Female Reproductive History : 2 Data Anesthesia 12/01/22 08:50 Short CBC 12/01/22 Range/Units 08:50 WBC 16.8 H (4.0-10.0) 10^3/uL Hgb 10.8 L (11.5-15.3) g/dL Hct 33.3 L (37.0-47.0) % MCV 94.3 (81-99) fl Plt Count 133 (130-400) 10^3/cmm Neut % (Auto) 74.1 % Neut # (Auto) 12.40 H (1.8-7.7) 10^3/uL Blood Bank 12/01/22 08:50 Blood Type A Positive Rho(D) Type Positive Antibody Screen Negative Cardiac Studies: No Data to Display
--- NOTE | 2022-12-01 13:54 | P.ANES_ITS ---
Anesthesia Procedures Procedure/Date: 12/01/22 Epidural: Time Out Performed: Yes Consents Signed: Procedure Consent Consent: requested by attending/covering physician and from patient Lumbar Level: L3-L4 Epidural position: sitting Epidural procedure: sterile prep of area, 1% lidocaine to numb the area, 18 g needle, neg for paresthesia, test d ose given, 1.5% xylocaine 1:200k epi (5cc), 0.2% Ropivacaine bolus ml (4cc and fentanyl 100 mcg), placed PCEA, no systemic response, sterile dressing applied and 0.2% Ropiavacaine @ mls/hr (10cc/hour) Additional Comments: KATRINA at 8cm. Cath placed 2.5 cm into epid space. Pt tolerated well
[2022-12-01] MEDS: hyDROXYzine 25 mg Capsule 50 MG PO (14:47)
--- NOTE | 2022-12-01 17:41 | PM.DELIVERY ---
Delivery Note: Date of delivery: December 01, 2022 Estimated blood loss (mL): 300 Pre-Delivery Course: She had routine care at [facility]. There were no complications during the . Blood type was A+ antibody negative, hepatitis B nonreactive, hepatitis C nonreactive, HIV nonreactive, rubella immune, GC chlamydia negative, RPR nonreactive, urine drug screen positive for marijuana, she passed her glucose tolerance test, as noted she was GBS positive. Delivery: This is a 22-year-old G2, P1 at 40 weeks 4 days gestation who presented to labor and delivery for postdate induction. She was started on high-dose Pitocin and underwent artificial rupture of membranes with clear fluid. She received an epidural for pain management. She was GBS positive and received ampicillin protocol. Rupture of membranes was approximately 5-1/2 hours prior to delivery. She only had to push through 3 contractions to have a normal spontaneous vaginal delivery of a viable male weight 3370 g, 7 pounds 7 ounces, Apgars 8 and 9 over an intact perineum. The infant was suctioned at delivery and placed on the mother's chest. The cord was clamped and cut. Cord blood was obtained. The placenta was delivered grossly intact and normal to inspection. There was a first-degree perineal laceration that was sutured using 3-0 chromic. Mother and infant were doing well after delivery. Coding Level of Care Code Acute Code for Chg Fwd Diagnoses
[2022-12-01] MEDS: acetaminophen 325 mg Tablet 650 MG PO (17:48)
[2022-12-01] MEDS: ibuprofen 800 mg tablet PO ×2 (21:18)
[2022-12-01] MEDS: lanolin oint 7 gm 1 APPLIC TOPICAL (21:18)
[2022-12-01] MEDS: benzocaine-menthol 78 gm Canister 1 SPRAY TOPICAL (21:18)
[2022-12-02 01:40] VITALS: BP 115/68; PULSE 96; RESP 16; TEMP 36.9
[2022-12-02 05:00] VITALS: BP 113/72; PULSE 88; RESP 16; TEMP 37.1
[2022-12-02 06:21] LABS: Hematocrit 34.3 % (37.0-47.0); Mean Corpuscular HGB Conc 32.1 g/dL (30.0-36.0); Mean Corpuscular Hemoglobin 30.8 pg (28.0-34.0); Mean Corpuscular Volume 96.1 fl (81-99); Mean Platelet Volume 13.8 fL (7.4-10.4); Platelet Count 140 10^3/cmm (130-400); Red Blood Count 3.57 10^6/uL (4.1-5.3); Red Cell Distribution Width 13.6 % (12.1-15.1); White Blood Count 17.1 10^3/uL (4.0-10.0)
--- NOTE | 2022-12-02 08:26 | ANE.PACU2 ---
Inpatient post-anesthesia follow up: Airway intact: Yes Vital signs: Temperature 98.7 F Pulse Rate 88 Respiratory Rate 16 Blood Pressure 113/72 Pulse Oximetry 97 Oxygen Delivery Me thod Room Air Oxygen Flow Rate Fraction of Inspir ed Oxygen Hydration adequate: Yes Nausea and vomiting: Yes Pain level: 1 Mental status: Baseline
[2022-12-02] MEDS: prenatal vitamin Capsule 1 CAP PO (09:20)
[2022-12-02] MEDS: docusate sodium 100 mg Capsule PO ×2 (09:20→16:56)
[2022-12-02] MEDS: ibuprofen 800 mg tablet PO ×2 (09:21→16:55)
[2022-12-02 10:20] VITALS: BP 118/71; PULSE 84; TEMP 36.7; O2SAT 98
--- NOTE | 2022-12-02 11:31 | PM.PN ---
Subjective Subjective: PPD#1 doing well, ambulating, tolerating a regular diet, has average to slightly heavy vaginal bleeding. Vitals/I&O/Wt Last Vital Signs Temp 98.7 F 12/02/22 05:00 Pulse 88 12/02/22 05:00 Resp 16 12/02/22 05:00 BP 113/72 12/02/22 05:00 Pulse Ox 97 12/01/22 14:41 O2 Del Method Room Air 12/01/22 09:00 12/01/22 12/02/22 12/02/22 22:59 06:59 14:59 Intake Total 164.9 / 2031.166 Output Total 850 / 850 200 / 1050 Balance -685.1 / 1181.166 -200 / 981.166 Weight last 48 hrs Weight 83.461 kg Physical Exam Narrative: Alert and orient, RRR, CTA bilaterally, abdomen is soft and nontender, fundus is firm and U -3, extremities have 1+ edema but no calf tenderness Urinary Catheter Management: Ye: Cath Placed During This Visit: yes, but has since been removed by the nurse Reason for Continuing Indwelling Catheter: Decision to DC Catheter Urinary Catheter Date of Insertion: 12/01/22 Urinary Catheter Time of Insertion: 14:30 Date Urinary Catheter Removed: 12/01/22 Time Urinary Catheter Discontinued: 17:10 Data 12/02/22 06:00 A&P Assessment and plan (1) Normal vaginal delivery of second : Continue routine post care (2) Maternal group B streptococcal infection affecting childbirth: Attestations Medical Necessity Statement*: Routine Coding Level of Care Code Acute Code for Chg Fwd Diagnoses Normal vaginal delivery of second O80 Maternal group B streptococcal infection affecting childbirth O99.824
[2022-12-02 14:00] VITALS: BP 116/82; PULSE 82; RESP 15; TEMP 36.9; O2SAT 98
[2022-12-02 17:14] VITALS: BP 119/80; PULSE 84; TEMP 36.6; TEMP 36.7; O2SAT 96
[2022-12-02 22:47] VITALS: BP 103/72; PULSE 88; RESP 16; TEMP 36.7; O2SAT 99
[2022-12-03 04:39] VITALS: BP 115/69; PULSE 91; RESP 16; TEMP 36.9
[2022-12-03] MEDS: acetaminophen 325 mg Tablet 650 MG PO (07:22)
[2022-12-03] MEDS: ibuprofen 800 mg tablet PO (08:58)
[2022-12-03] MEDS: prenatal vitamin Capsule 1 CAP PO (08:58)
[2022-12-03] MEDS: docusate sodium 100 mg Capsule PO (08:58)
--- NOTE | 2022-12-03 12:22 | P.DS_ITS ---
Discharge Providers Date of Admission: 12/01/22 07:52 Date of Discharge: December 03, 2022 Attending Provider at Admission: Hazel Michael MD Attending Provider at Discharge: Hazel iMchael MD Primary Care Provider: KATHI John Diagnoses at Discharge Discharge Diagnosis (1) Normal vaginal delivery of second : Status: Acute (2) Maternal group B streptococcal infection affecting childbirth: Status: Acute Reason for Visit Reason for Visit: IOL Hospital Course Hospital Course This is a 22-year-old G2 now P2 who was admitted for postdate induction. She had a normal spontaneous vaginal delivery of a viable male at 40 weeks 5 days gestation. She did well she had average vaginal bleeding, was tolerating a regular diet, had no pain and was comfortable with discharge home. Physical Exam Narrative: Alert and oriented, resting in bed, heart regular rate and rhythm, lungs clear to auscultation bilaterally, abdomen is soft and nontender, fundus is firm and U -3, extremities have trace edema but no calf tenderness. Urinary Catheter Management: Ye: Cath Placed During This Visit: yes, but has since been removed by the nurse Reason for Continuing Indwelling Catheter: Decision to DC Catheter Urinary Catheter Date of Insertion: 12/01/22 Urinary Catheter Time of Insertion: 14:30 Date Urinary Catheter Removed: 12/01/22 Time Urinary Catheter Discontinued: 17:10 Discharge Data Studies Completed and Pending Laboratory Results WBC 17.1 10^3/uL (4.0-10.0) H 12/02/22 06:00 RBC 3.57 10^6/uL (4.1-5.3) L 12/02/22 06:00 Hgb 11.0 g/dL (11.5-15.3) L 12/02/22 06:00 Hct 34.3 % (37.0-47.0) L 12/02/22 06:00 MCV 96.1 fl (81-99) 12/02/22 06:00 MCH 30.8 pg (28.0-34.0) 12/02/22 06:00 MCHC 32.1 g/dL (30.0-36.0) 12/02/22 06:00 RDW 13.6 % (12.1-15.1) 12/02/22 06:00 Plt Count 140 10^3/cmm (130-400) 12/02/22 06:00 MPV 13.8 fL (7.4-10.4) H 12/02/22 06:00 Neut % (Auto) 74.1 % 12/01/22 08:50 Lymph % (Auto) 15.3 % 12/01/22 08:50 [place] % (Auto) 7.3 % 12/01/22 08:50 Eos % (Auto) 1.7 % 12/01/22 08:50 Baso % (Auto) 0.4 % 12/01/22 08:50 Neut # (Auto) 12.40 10^3/uL (1.8-7.7) H 12/01/22 08:50 Lymph # (Auto) 2.6 10^3/uL (0.8-4.8) 12/01/22 08:50 [place] # (Auto) 1.2 10^3/uL (0.2-0.9) H 12/01/22 08:50 Eos # (Auto) 0.3 10^3/uL (0.0-0.8) 12/01/22 08:50 Baso # (Auto) 0.1 10^3/uL (0.0-0.1) 12/01/22 08:50 Nucleated RBC % (auto) 0 % 12/01/22 08:50 Nucleated RBCs # 0.0 /100WBC 12/01/22 08:50 Urine Opiates Screen Negative ng/mL (Negative) 12/01/22 08:50 Ur Barbiturates Screen Negative ng/mL (Negative) 12/01/22 08:50 Ur Phencyclidine Scrn Negative ng/mL (Negative) 12/01/22 08:50 Ur Amphetamines Screen Negative ng/mL (Negative) 12/01/22 08:50 U Benzodiazepines Scrn Negative ng/mL (Negative) 12/01/22 08:50 Urine Cocaine Screen Negative ng/mL (Negative) 12/01/22 08:50 U Marijuana (THC) Screen Positive ng/mL (Negative) H 12/01/22 08:50 Blood Type A Positive 12/01/22 08:50 Rho(D) Type Positive 12/01/22 08:50 Antibody Screen Negative 12/01/22 08:50 Vitals Last Vital Signs Temp 98.4 F 12/03/22 04:39 Pulse 91 07/16/23 04:39 Resp 16 12/03/22 04:39 BP 115/69 12/03/22 04:39 Pulse Ox 99 12/02/22 22:47 O2 Del Method Room Air 12/02/22 22:47 Discharge Plan Discharge Patient Disposition: Home Prescriptions: Discontinued sucralfate [Carafate] 1 gram tablet 1 g PO TID Qty: 90 0RF ampicillin 500 mg capsule 500 mg PO TID Qty: 21 0RF metoclopramide HCl [Reglan] 10 mg tablet 10 mg PO Q6H PRN (Reason: nausea and vomiting) Qty: 30 0RF doxylamine-pyridoxine (vit B6) 10-10 mg Tablet,Delayed Release (Dr/Ec) 1 tab PO BID PRN (Reason: Nausea And Vomiting) Qty: 30 0RF Discharge Orders: Discharge Order (Routine); Ordered 12/03/22 Ordered By: Hazel Michael Referrals: Hazel Michael MD [Physician] - 1 month (Call [facility] to set up appt with Dr Michael at 4 weeks) Discharge Diet: Usual diet Discharge Activity: Limit activity as instructed Patient Instructions: Bleeding (GEN), Hemorrhage (GEN), OB Discharge Report, OB Home Care Instructions, OB Care at Home, OB Home Care, OB Vaginal Deliveries, Abnormal Bleeding, Depression Activity Restrictions/Additional Instructions: Nothing per vagina for 6 weeks. Discharge Attestations Time Spent in Discharge Care*: less than 30 min Quality Metrics Clinical Quality Measures [ No reported AMI, CVA or VTE this stay] Coding Level of Care Code Acute Code for Chg Fwd Diagnoses Normal vaginal delivery of second O80 Maternal group B streptococcal infection affecting childbirth O99.824
[2022-12-03 16:00] VITALS: BP 109/63; PULSE 80; RESP 16; TEMP 36.8
== END 2022-12-03 16:15 | disposition home or self-care (01) | DRG 807 ==
LOC: OPOB 07:53 → OBGYN 07:53
PROVIDERS: Admitting Provider Family Medicine; PCP Registered Nurse; Visit Provider Family Medicine
DX: O48.0 Post-term pregnancy (principal); Z37.0 Single live birth; Z3A.40 40 weeks gestation of pregnancy; O99.824 Streptococcus B carrier state complicating childbirth; O70.0 First degree perineal laceration during delivery
CPT/HCPCS: 36415; 51702; 59025; 59409; 80306; 85025; 85027; 86850; 86900; 96374; 99211; J0290; J2795; J3010; J7040; J7120; J7121

== ENCOUNTER 2023-12-10 12:18 | Emergency (ER) | payer MEDICAID, SELFPAY ==
[2023-12-10 12:33] VITALS: PULSE 88; TEMP 36.9; O2SAT 95; BMI 20.6
--- NOTE | 2023-12-10 13:31 | ED_ITS ---
HPI - Skin/Abscess/Foreign Bdy General: Chief complaint: Skin/Abscess/Foreign Body Stated complaint: Lump under right arm Time Seen by Provider: 12/10/23 12:39 Source: patient Mode of arrival: ambulatory Limitations: no limitations History of Present Illness: Patient is a 23-year-old female presents to ED today for evaluation of an abscess to her right axillary region that she has noticed over the past 2 to 3 days. She feels like area is continuing to worsen. She states she has had similar lesions that were small and seem to resolve on their own. She has never had to have an abscess drained. No known history of staph or MRSA. No known history of hidradenitis suppurativa. MD complaint: abscess/boil Onset (ago): day(s) Tetanus up to date: yes Location: RUE (R axilla) Severity: mild Pain Consistency: constant Relieving factors: none Exacerbating factors: none Associated symptoms: Reports no associated symptoms Treatments prior to arrival: none Review of Systems Skin/Breast: Reports: other (abscess R axillary region) [facility] ED PFSH: Medical History No significant past medical history Surgical History No significant past surgical history Social History Smoking and tobacco/nicotine status: current every day tobacco/nicotine user cigarettes Alcohol intake: current Alcohol intake frequency: few times a month Substance/Drug Use: current Physical Exam Extremity: NARRATIVE EXTREMITY EXAM: fluctuate abscess to R axillary region GENERAL: Yes normal exam except as noted Skin: NARRATIVE SKIN EXAM: fluctuate abscess to R axillary region Procedures Abscess I/D Site: upper extremity (R axilla) Side (if applicable): right Local Anesthetic: lidocaine 1% and with epi Amount of anesthesia used (mL): 4.0 Technique: incised with #11 blade Amount of fluid expressed (mL): 5.0 Packing used?: plain Course Vital Signs: Vital signs: Vital Signs Temperature 98.4 F 12/10/23 12:33 Pulse Rate 88 12/10/23 12:33 Pulse Oximetry 95 12/10/23 12:33 Oxygen Delivery Me thod Room Air 12/10/23 12:33 MDM - Skin/Abscess/Foreign Bdy Medicial Decision Making Abscess was incised and drained and packed. Culture obtained. Recommend discontinuation of shaving area until fully healed and then using a clean/new razor. Will be placed on Bactrim. Return precautions given. Otherwise she can remove packing in 72 hours. Medical Records I reviewed the patient's medical records. No radiology studies performed this visit Discharge Plan Discharge Patient Disposition: Home Clinical Impression: Abscess of right axilla Condition: Stable Prescriptions: New Bactrim DS 800-160 mg tablet 1 tab PO BID 7 Days Qty: 14 0RF Discharge Orders: Discharge ED (Routine); Ordered 12/10/23 Ordered By: Deidre Garcia Referrals: Reinier Amezquita FNP [Primary Care Provider] - Patient Instructions: Abscess (ED), Abscess Incision and Drainage (DC) Activity Restrictions/Additional Instructions: Please monitor your abscess for worsening symptoms such as worsening redness, swelling, increased drainage, red streaking, or fevers. If you have been on antibiotics for over 48 hours and continue to worsen you need to immediately return to the emergency department for re-evaluation. If your abscess was incised and drained and packing was placed, you should have received instructions on when to remove packing-3 DAYS. 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
== END 2023-12-10 14:20 | disposition home or self-care (01) ==
PROVIDERS: Emergency Provider Physician Assistant; PCP Registered Nurse
DX: L02.411 Cutaneous abscess of right axilla (principal); F17.210 Nicotine dependence, cigarettes, uncomplicated
CPT/HCPCS: 10060; 99283

== ENCOUNTER 2024-09-04 14:27 | Outpatient (CLI) | payer MEDICAID, SELFPAY ==
--- NOTE | 2024-09-04 14:30 | MR_ITS ---
WS: [id number] MRI RIGHT SHOULDER NONCONTRAST TECHNIQUE: Sagittal T2, coronal T1, T2 and proton density imaging. Axial gradient PDE imaging. CLINICAL INFORMATION: M75.41 - Impingement syndrome of right shoulder COMPARISON: None. FINDINGS: Mild arthritis AC joint with mild downsloping acromion. Impingement on the distal supraspinatus. Tendinopathy distal supraspinatus and infraspinatus worse involving the distal infraspinatus. Trace subacromial and subdeltoid fluid. Normal teres minor. Normal subscapularis tendon. Biceps tendon appears intact within the bicipital groove. Intra-articular biceps tendon appears intact. Labrum appears grossly normal. Tendinopathy intra-articular biceps tendon with increased T2 signal abnormality. Tendinopathy subscapularis tendon distally. MR/MR shoulder RT wo con* [id number] IMPRESSION: 1. Mild downsloping of the acromion with impingement on the distal supraspinat us and infraspinatus. 2. Tendinopathy distal supraspinatus and infraspinatus worse at the infraspina tus insertion. 3. Enlargement with increased T2 signal abnormality involving the intra-articu lar biceps tendon compatible with tendinopathy. Tendinopathy in the distal subs capularis tendon. 4. Biceps tendon appears intact within the bicipital groove. 5. No other acute findings.
== END 2024-09-04 14:28 | disposition home or self-care (01) ==
PROVIDERS: PCP Registered Nurse; Visit Provider Registered Nurse
DX: M75.41 Impingement syndrome of right shoulder (principal); M67.813 Other specified disorders of tendon, right shoulder; M19.011 Primary osteoarthritis, right shoulder
CPT/HCPCS: 73221